=== PATIENT | male | born 1945 | race Hispanic/Latino ===

== ENCOUNTER 2020-11-09 08:14 | Emergency (ER) | payer MEDICARE ==
[2020-11-09] MEDS ORDERED: Acetaminophen 500 MG TAB ONE (08:41)
--- NOTE | 2020-11-09 10:43 | RAD ---
EXAM: Chest one view: HISTORY: Shortness of breath, Covid positive COMPARISON: None FINDINGS: Heart size: Within normal limits. Lungs: Patchy bilateral interstitial, alveolar, and groundglass opacity changes. No evidence for confluent lobar pneumonia, significant pleural effusion, acute edema, or pneumothorax , or other significant acute process. IMPRESSION: Evidence for patchy [id number] bilateral Covid pneumonia.
== END 2020-11-09 11:00 | disposition home or self-care (01) ==
LOC: ERS 08:14
DX: U07.1 COVID-19 (principal); I10 Essential (primary) hypertension
CPT/HCPCS: 71045